=== PATIENT | male | born 1940 | race African-American/Black ===

== ENCOUNTER 2017-04-02 20:38 | Emergency (ER) | payer MEDICARE, MEDICAID ==
[~2017-04-02] VITALS: Ht 177.8 cm; Wt 90.7 kg
[2017-04-02] MEDS ORDERED: Unasyn 3gm Inj ONE (21:14)
[2017-04-02 21:15] LABS: ABG BASE EXCESS -7.1
[2017-04-02 21:16] LABS: ABG ALLEN TEST POSITIVE
[2017-04-02] MEDS: Ampicillin/Sulbactam Sod 3 GM in NS 110 ML IV SCH (21:26)
[2017-04-02 22:33] LABS: MEAN CORPUSCULAR HEMOGLOBIN 29.1 PG (27.0-31.0); MEAN CORPUSCULAR HGB CONC 35.1 G/DL (32.0-36.0); MEAN CORPUSCULAR VOLUME 83 FL (80-99); MEAN PLATELET VOLUME 6.6 FL (6.5-10.1); PLATELET COUNT 156 K/UL (150-450); RED BLOOD COUNT 4.26 M/UL (4.70-6.10); RED CELL DISTRIBUTION WIDTH 14.6 % (11.6-14.8); WHITE BLOOD COUNT 12.9 K/UL (4.8-10.8)
[2017-04-02 22:47] LABS: TROPONIN I < 0.30 ng/mL (<=0.30)
[2017-04-02 22:48] LABS: ALANINE AMINOTRANSFERASE 31 U/L (3-41); ALBUMIN/GLOBULIN RATIO 0.9 (1.0-2.7); ANION GAP 12 (5-15); ASPARTATE AMINO TRANSFERASE 34 U/L (5-40); BAND NEUTROPHILS % (MANUAL) 4 % (0-8); CALCIUM 9.2 mg/dL (8.6-10.2); CARBON DIOXIDE 23 mEQ/L (20-30); CHLORIDE 101 mEQ/L (98-107); CREATININE 1.3 mg/dL (0.7-1.2); HEMOLYSIS 3; LYMPHOCYTES % (MANUAL) 9 % (20-45); NEUTROPHILS % (MANUAL) 80 % (45-75); POTASSIUM 4.4 mEQ/L (3.4-4.9); SODIUM 136 mEQ/L (135-145); TOTAL CELLS COUNTED 100; TOTAL PROTEIN 6.5 g/dL (6.6-8.7)
[2017-04-02 22:52] LABS: BASOPHILS % (MANUAL) 0 % (0-2); EOSINOPHILS % (MANUAL) 0 % (0-3); PLATELET ESTIMATE ADEQUATE; PLATELET MORPHOLOGY NORMAL
[2017-04-02 23:00] LABS: KETONES,URINE NEGATIVE (NEGATIVE); PH,URINE 5 (4.5-8.0); PROTEIN,URINE 4+ (NEGATIVE); UROBILINOGEN,URINE 1 MG/DL (0.0-1.0)
[2017-04-02 23:03] LABS: REFLEX LACTIC ACID YES OR NO YES
--- NOTE | 2017-04-02 23:04 | Emergency Room Report ---
History of Present Illness General Chief Complaint: Altered Level of Consciousness Source: EMS Present Illness HPI Patient is a 77-year-old male who presented after increased level of consciousness from alf. Patient reportedly had been seen one day earlier at [facility]. Patient was sent back to his nursing facility subsequently after some improvement in his mental status. Patient had been having fever up to 102. Patient had been noted to be slowly verbal at baseline. The patient was noted to be increased confusion compared to baseline. Allergies: Coded Allergies: NSAIDS (NON-STEROIDAL ANTI-INFLAMMA (Verified Allergy, Unknown, 04/02/17) Patient History Past Medical History: see triage record Reviewed Nursing Documentation: PMH: Agreed, PSxH: Agreed Nursing Documentation-PMH Hx Cardiac Problems: Yes - Atherosclerosis of Aorta, anemia Hx Hypertension: Yes - Non traumatic Intracerebral Hemorrhage Hx Diabetes: Yes Hx Gastrointestinal Problems: Yes - GERD, Dysphagia History Of Psychiatric Problem: Yes - Depression Review of Systems All Other Systems: limited - by mental status Physical Exam Vital Signs Date Time Temp Pulse Resp B/P (MAP) Pulse Ox O2 Delivery O2 Flow Rate FiO2 04/02/17 20:32 100.2 107 20 94/59 97 Room Air Sp02 EP Interpretation: normal General Appearance: moderate distress, Chronically Ill Head: normocephalic Eyes: bilateral eye other - right pupil postsurgical, ENT: dry mucus membranes, other - gag reflex present Respiratory: rales, rhonchi Cardiovascular #1: normal peripheral pulses, regular rate, rhythm, edema Gastrointestinal: normal bowel sounds, non tender, soft Musculoskeletal: normal inspection, back normal, digits/nails normal Neurologic: motor weakness, other - aphasic Psychiatric: other - minimally responisve Procedures Critical Care Time Critical Care Time Patient had a critical medical condition which untreated could potentially result in life or limb threatening injury. Total critical care time excluding procedures approximately 45 minutes. Medical Decision Making Diagnostic Impression: Primary Impression: Altered level of consciousness Additional Impressions: Aspiration pneumonia Sepsis Decubital ulcer ER Course Patient presented for altered level consciousness.Differential diagnosis included but was not limited to ischemic stroke, subarachnoid hemorrhage, hypoglycemia, spinal cord injury, sepsis, neurodegenerative disorder, urinary tract infection, hypoxemia.Because of complexity of patient's case laboratory testing and imaging studies were ordered. The patient initially noted to be hypotensive. 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 The patient was given IV fluids as well as IV Unasyn and vancomycin. Laboratory testing was notable for elevated white blood count as well as bandemiaThe patient was noted to have vomited during transportation. Patient was suctioned immediately after vomiting. Patient appeared to have adequate cough reflex.The patient was discussed with at [facility] for transfer for continuity of care Labs Test 04/02/17 20:40 04/02/17 22:00 04/02/17 22:49 Arterial Blood pH 7.452 (7.350-7.450) Arterial Blood Partial Pressure CO2 23.0 mmHg (35.0-45.0) Arterial Blood Partial Pressure O2 64.0 mmHg (75.0-100.0) Arterial Blood HCO3 15.0 mmol/L (22.0-26.0) Arterial Blood Oxygen Saturation 68.0 % (92.0-98.0) Arterial Blood Base Excess -7.1 Mitch Test Positive White Blood Count 12.9 K/UL (4.8-10.8) Red Blood Count 4.26 M/UL (4.70-6.10) Hemoglobin 12.4 G/DL (14.2-18.0) Hematocrit 35.3 % (42.0-52.0) Mean Corpuscular Volume 83 FL (80-99) Mean Corpuscular Hemoglobin 29.1 PG (27.0-31.0) Mean Corpuscular Hemoglobin Concent 35.1 G/DL (32.0-36.0) Red Cell Distribution Width 14.6 % (11.6-14.8) Platelet Count 156 K/UL (150-450) Mean Platelet Volume 6.6 FL (6.5-10.1) Neutrophils (%) (Auto) % (45.0-75.0) Lymphocytes (%) (Auto) % (20.0-45.0) Monocytes (%) (Auto) % (1.0-10.0) Eosinophils (%) (Auto) % (0.0-3.0) Basophils (%) (Auto) % (0.0-2.0) Differential Total Cells Counted 100 Neutrophils % (Manual) 80 % (45-75) Lymphocytes % (Manual) 9 % (20-45) Monocytes % (Manual) 7 % (1-10) Eosinophils % (Manual) 0 % (0-3) Basophils % (Manual) 0 % (0-2) Band Neutrophils 4 % (0-8) Platelet Estimate Adequate Platelet Morphology Normal Red Blood Cell Morphology Normal Sodium Level 136 mEQ/L (135-145) Potassium Level 4.4 mEQ/L (3.4-4.9) Chloride Level 101 mEQ/L (98-107) Carbon Dioxide Level 23 mEQ/L (20-30) Anion Gap 12 (5-15) Blood Urea Nitrogen 23 mg/dL (7-23) Creatinine 1.3 mg/dL (0.7-1.2) Estimat Glomerular Filtration Rate mL/min (>60) Glucose Level 315 mg/dL (74-106) Lactic Acid Level 3.00 mmol/L (0.66-2.22) Calcium Level 9.2 mg/dL (8.6-10.2) Total Bilirubin 0.5 mg/dL (0.0-1.2) Aspartate Amino Transf (AST/SGOT) 34 U/L (5-40) Alanine Aminotransferase (ALT/SGPT) 31 U/L (3-41) Alkaline Phosphatase 80 U/L (40-129) Total Creatine Kinase 217 U/L (38-174) Creatine Kinase MB 3.0 ng/mL (< 6.7) Creatine Kinase MB Relative Index 1.3 Troponin I < 0.30 ng/mL (<=0.30) Pro-B-Type Natriuretic Peptide 3378 pg/mL (0-450) Total Protein 6.5 g/dL (6.6-8.7) Albumin 3.1 g/dL (3.5-5.2) Globulin 3.4 g/dL Albumin/Globulin Ratio 0.9 (1.0-2.7) Urine Color Red Urine Appearance Cloudy Urine pH 5 (4.5-8.0) Urine Specific [place] 1.015 (1.005-1.035) Urine Protein 4+ (NEGATIVE) Urine Glucose (UA) 1+ (NEGATIVE) Urine Ketones Negative (NEGATIVE) Urine Occult Blood 5+ (NEGATIVE) Urine Nitrite Negative (NEGATIVE) Urine Bilirubin Negative (NEGATIVE) Urine Urobilinogen 1 MG/DL (0.0-1.0) Urine Leukocyte Esterase 1+ (NEGATIVE) Urine RBC Tntc /HPF (0 - 0) Urine WBC 2-4 /HPF (0 - 0) Urine Squamous Epithelial Cells None /LPF (NONE/OCC) Urine Bacteria Few /HPF (NONE) EKG Diagnostic Results Rate: tachycardiac Rhythm: NSR ST Segments: no acute changes ASA given to the pt in ED: No Rhythm Strip Diag. Results EP Interpretation: yes Rhythm: NSR, no PVC's Last Vital Signs Date Time Temp Pulse Resp B/P (MAP) Pulse Ox O2 Delivery O2 Flow Rate FiO2 04/02/17 20:32 100.2 107 20 94/59 97 Room Air Status: improved Disposition: [facility] Condition: Serious Referrals: NON PHYSICIAN (PCP) García Dyson Apr 02, 2017 23:04
[2017-04-02 23:08] LABS: APPEARANCE,URINE CLOUDY; LEUKOCYTE ESTERASE ,URINE 1+ (NEGATIVE); NITRITE,URINE NEGATIVE (NEGATIVE)
[2017-04-02 23:09] LABS: BACTERIA,URINE FEW /HPF; RBC,URINE TNTC /HPF (0 - 0)
[2017-04-02 23:16] VITALS: BP 122/87
[2017-04-02] MEDS ORDERED: Acetaminophen 650 MG SUPP RECTAL ONE (23:45)
[2017-04-02] MEDS ORDERED: Vancomycin 1.5gm/D5W 250ml 250 ML IVPB ONE (23:45)
[2017-04-03 01:50] VITALS: BP 127/61
[2017-04-03 02:32] VITALS: BP 127/61
[2017-04-03] MEDS: Ampicillin/Sulbactam Sod 3 GM in NS 110 ML IV SCH (02:34)
--- NOTE | 2017-04-03 09:56 | Diagnostic Imaging Report ---
Indication: Altered mental status Technique: Contiguous 5 mm thick transaxial imaging of the head obtained in a Siemens Sensation [address] scanner. Soft tissue and bone windows generated. Total Dose length Product (DLP): [address] Dose Index Volume (CTDIvol): 70.38 x3, 0.15 mGy Comparison: none Findings: There is moderate prominence of the ventricles, basal cisterns, and cerebral sulci consistent with atrophy. Moderate, nonspecific, white matter hypoattenuation is noted throughout the brain consistent with chronic small vessel disease. There is no midline shift, edema, acute hemorrhage, mass effect, or abnormal extra-axial fluid collections. Bones and extra osseous soft tissues are unremarkable. Impression: No acute intracranial bleed, mass effect or edema. Moderate atrophy of the brain. Evidence of chronic small vessel disease involving white matter tracts. The study is significantly degraded by motion. [facility] has communicated the preliminary results to the Emergency Department. Their findings are largely concordant with this report. The CT scanner at [facility] is accredited by the [employer] and the scans are performed using dose optimization techniques as appropriate to a performed exam including Automatic Exposure control.
--- NOTE | 2017-04-03 11:12 | Diagnostic Imaging Report ---
Indication: Dyspnea Comparison: None A single view chest radiograph was obtained. Findings: Cardiomediastinal appearance is within normal limits for age. Pulmonary vascularity is appropriate. The diaphragmatic contour is smooth and costophrenic angles are sharp. No pleural effusions are identified. The bones are osteopenic. Impression: No acute findings
--- NOTE | 2017-04-03 13:42 | Cardiology Report ---
APPROVED REPORT EKG Measurement Heart [id number] Sinus tachycardia with 1st degree AV block Inferior infarct, age undetermined Anterolateral infarct, age undetermined Abnormal ECG
== END 2017-04-03 02:34 | disposition short-term general hospital (02) ==
LOC: EDBD 20:38 → EMR 20:40
DX: R41.82 Altered mental status, unspecified (principal); J18.9 Pneumonia, unspecified organism; A41.9 Sepsis, unspecified organism; L89.90 Pressure ulcer of unspecified site, unspecified stage; I10 Essential (primary) hypertension; E11.9 Type 2 diabetes mellitus without complications; K21.9 Gastro-esophageal reflux disease without esophagitis; Z88.6 Allergy status to analgesic agent; I95.9 Hypotension, unspecified; R00.0 Tachycardia, unspecified; G31.9 Degenerative disease of nervous system, unspecified; I73.9 Peripheral vascular disease, unspecified; M85.80 Other specified disorders of bone density and structure, unspecified site
CPT/HCPCS: 36415; 36600; 70450; 71010; 80053; 81003; 82550; 82553; 82803; 83605; 83880; 84484; 85007; 85025; 87040; 87181; 93005; 96360; 96365; 96366; 96374; 99291; J0295; J3370

== ENCOUNTER 2018-01-20 00:18 | Emergency (ER) | payer MEDICARE, MEDICAID ==
[~2018-01-20] VITALS: Ht 182.9 cm; Wt 90.7 kg
[2018-01-20] MEDS ORDERED: Sodium Chloride 500ML 500 ML IV ONE (00:37)
[2018-01-20] MEDS ORDERED: Acetaminophen 650mg/20.3ml GT ONE (00:45)
[2018-01-20 01:14] LABS: BASOPHILS % (AUTO) 0.6 % (0.0-2.0); EOSINOPHILS % (AUTO) 0.2 % (0.0-3.0); HEMATOCRIT 33.7 % (42.0-52.0); HEMOGLOBIN 10.3 G/DL (14.2-18.0); LYMPHOCYTES % (AUTO) 16.5 % (20.0-45.0); MEAN CORPUSCULAR VOLUME 79 FL (80-99); MONOCYTES % (AUTO) 7.6 % (1.0-10.0); NEUTROPHILS % (AUTO) 75.1 % (45.0-75.0); PLATELET COUNT 314 K/UL (150-450); RED BLOOD COUNT 4.27 M/UL (4.70-6.10); RED CELL DISTRIBUTION WIDTH 18.7 % (11.6-14.8); WHITE BLOOD COUNT 12.5 K/UL (4.8-10.8)
[2018-01-20 01:15] LABS: BILIRUBIN, URINE NEGATIVE (NEGATIVE); GLUCOSE, URINE (UA) NEGATIVE (NEGATIVE); KETONES,URINE NEGATIVE (NEGATIVE); NITRITE,URINE NEGATIVE (NEGATIVE); PH,URINE 8 (4.5-8.0); PROTEIN,URINE 3+ (NEGATIVE); UROBILINOGEN,URINE NORMAL MG/DL (0.0-1.0)
[2018-01-20] MEDS ORDERED: Acetaminophen 650 MG SUPP RECTAL ONE (01:15)
[2018-01-20 01:20] LABS: ANION GAP 6 mmol/L (5-15); BLOOD UREA NITROGEN 66 mg/dL (7-18); CALCIUM 8.4 MG/DL (8.5-10.1); CARBON DIOXIDE 31 MMOL/L (21-32); CHLORIDE 117 MMOL/L (98-107); CREATININE 1.2 MG/DL (0.55-1.30); SODIUM 154 MMOL/L (136-145)
[2018-01-20 01:27] LABS: APPEARANCE,URINE CLOUDY; COLOR,URINE YELLOW; LEUKOCYTE ESTERASE ,URINE 1+ (NEGATIVE)
[2018-01-20 01:35] LABS: ALANINE AMINOTRANSFERASE 454 U/L (12-78); ALBUMIN 1.1 G/DL (3.4-5.0); ALBUMIN/GLOBULIN RATIO 0.2 (1.0-2.7); ALKALINE PHOSPHATASE 125 U/L (46-116); ASPARTATE AMINO TRANSFERASE 306 U/L (15-37); BILIRUBIN,TOTAL 0.2 MG/DL (0.2-1.0); CKMB 1.2 NG/ML (0.0-3.6); CREATINE KINASE 137 U/L (26-308)
[2018-01-20] MEDS ORDERED: Azithromycin 500 MG in NS 275 ML IV ONE (02:45)
[2018-01-20] MEDS ORDERED: Piperacillin/Tazobactam 3.375 GM in NS 110 ML IVPB ONE (02:45)
[2018-01-20 03:40] VITALS: BP 161/84
--- NOTE | 2018-01-20 04:07 | Emergency Room Report ---
History of Present Illness General Chief Complaint: Dyspnea/Respdistress Source: Patient, Medical Record Present Illness HPI 77-year-old M presents ED for evaluation of shortness of breath, fever. Temp 102.4 rectally in triage. Coming from custodial. Also noted to be hypoxic. Placed on 15 L nonrebreather with improved O2 sats. Symptoms started today. Patient is nonverbal at baseline. No showing no signs of distress upon arrival. No other aggravating or relieving factors. No other associated symptoms Allergies: Coded Allergies: NSAIDS (NON-STEROIDAL ANTI-INFLAMMA (Verified Allergy, Unknown, 04/02/17) Patient History Past Medical History: DM, HTN, CVA/TIA Pertinent Family History: none Social History: Denies: smoking, alcohol use, drug use Immunizations: UTD Reviewed Nursing Documentation: PMH: Agreed; PSxH: Agreed Nursing Documentation-PMH Hx Cardiac Problems: Yes - Atherosclerosis of Aorta, anemia Hx Hypertension: Yes - Non traumatic Intracerebral Hemorrhage Hx Diabetes: Yes Hx Cerebrovascular Accident: Yes - Hemipgenia, hemiparesis Review of Systems All Other Systems: limited Physical Exam Vital Signs Date Time Temp Pulse Resp B/P (MAP) Pulse Ox O2 Delivery O2 Flow Rate FiO2 01/20/18 00:10 99.8 117 20 146/88 99 Non-Rebreather 15.0 99.9 Sp02 EP Interpretation: reviewed, normal General Appearance: other - nonverbal Head: normocephalic Eyes: bilateral eye normal inspection, bilateral eye PERRL ENT: normal ENT inspection Neck: normal inspection Respiratory: crackles Cardiovascular #1: tachycardia Gastrointestinal: normal inspection Rectal: deferred Genitourinary: no CVA tenderness Musculoskeletal: normal inspection Neurologic: other - nonverbal Psychiatric: other - nonverbal Skin: normal inspection Lymphatic: normal inspection Medical Decision Making Diagnostic Impression: Primary Impression: Pneumonia Qualified Codes: J18.1 - Lobar pneumonia, unspecified organism Additional Impression: Respiratory distress ER Course Hospital Course 77-year-old M presenting to ED with respiratory distress, fever Differential diagnoses include: Pneumonia, CHF exacerbation, pneumothorax, fluid overload Clinical course Patient placed on stretcher. On electronic device monitor with hypoxia on room air and tachycardia. After initial history and physical, I ordered labs, IV fluids, EKG , chest x-ray, blood cultures, UA. Patient placed on nasal cannula with O2 saturation improving Labs -leukocytosis noted, hemoglobin/hematocrit stable, electrolytes ok, BNP elevated, trop 0.141 EKG - sinus tachycardia no acute ischemic changes interpreted by me CXR - RLL infiltrate Patient O2 sat remains above 90% on nasal cannula. tachycardia improving with IV fluids. Antibiotics given Because of insurance patient will be transferred to [place] I feel this is a highly complex case requiring extensive working including EKG/ Rhythm strip, Xray/CT/US, Blood/urine lab work, repeat exams while in ED, and administration of strong opiates/narcotics for pain control, admission to hospital or close patient follow up. Diagnosis - pneumonia, respiratory distress Transferred in serious condition Labs Test 01/20/18 00:49 01/20/18 00:50 Urine Color Yellow Urine Appearance Cloudy Urine pH 8 (4.5-8.0) Urine Specific [place] 1.010 (1.005-1.035) Urine Protein 3+ (NEGATIVE) Urine Glucose (UA) Negative (NEGATIVE) Urine Ketones Negative (NEGATIVE) Urine Occult Blood 2+ (NEGATIVE) Urine Nitrite Negative (NEGATIVE) Urine Bilirubin Negative (NEGATIVE) Urine Urobilinogen Normal MG/DL (0.0-1.0) Urine Leukocyte Esterase 1+ (NEGATIVE) Urine RBC 2-4 /HPF (0 - 0) Urine WBC 0-2 /HPF (0 - 0) Urine Squamous Epithelial Cells None /LPF (NONE/OCC) Urine Triple Phosphate Crystals Many /LPF (NONE) Urine Bacteria Few /HPF (NONE) White Blood Count 12.5 K/UL (4.8-10.8) Red Blood Count 4.27 M/UL (4.70-6.10) Hemoglobin 10.3 G/DL (14.2-18.0) Hematocrit 33.7 % (42.0-52.0) Mean Corpuscular Volume 79 FL (80-99) Mean Corpuscular Hemoglobin 24.2 PG (27.0-31.0) Mean Corpuscular Hemoglobin Concent 30.7 G/DL (32.0-36.0) Red Cell Distribution Width 18.7 % (11.6-14.8) Platelet Count 314 K/UL (150-450) Mean Platelet Volume 7.8 FL (6.5-10.1) Neutrophils (%) (Auto) 75.1 % (45.0-75.0) Lymphocytes (%) (Auto) 16.5 % (20.0-45.0) Monocytes (%) (Auto) 7.6 % (1.0-10.0) Eosinophils (%) (Auto) 0.2 % (0.0-3.0) Basophils (%) (Auto) 0.6 % (0.0-2.0) Sodium Level 154 MMOL/L (136-145) Potassium Level 4.0 MMOL/L (3.5-5.1) Chloride Level 117 MMOL/L (98-107) Carbon Dioxide Level 31 MMOL/L (21-32) Anion Gap 6 mmol/L (5-15) Blood Urea Nitrogen 66 mg/dL (7-18) Creatinine 1.2 MG/DL (0.55-1.30) Estimat Glomerular Filtration Rate mL/min (>60) Glucose Level 289 MG/DL (74-106) Lactic Acid Level 2.00 mmol/L (0.4-2.0) Calcium Level 8.4 MG/DL (8.5-10.1) Total Bilirubin 0.2 MG/DL (0.2-1.0) Aspartate Amino Transf (AST/SGOT) 306 U/L (15-37) Alanine Aminotransferase (ALT/SGPT) 454 U/L (12-78) Alkaline Phosphatase 125 U/L (46-116) Total Creatine Kinase 137 U/L (26-308) Creatine Kinase MB 1.2 NG/ML (0.0-3.6) Creatine Kinase MB Relative Index 0.8 Troponin I 0.141 ng/mL (0.000-0.056) Pro-B-Type Natriuretic Peptide 2644 pg/mL (0-125) Total Protein 7.2 G/DL (6.4-8.2) Albumin 1.1 G/DL (3.4-5.0) Globulin 6.1 g/dL Albumin/Globulin Ratio 0.2 (1.0-2.7) EKG Diagnostic Results Rate: tachycardiac Rhythm: NSR ST Segments: no acute changes ASA given to the pt in ED: No Rhythm Strip Diag. Results EP Interpretation: yes Rhythm: NSR, no PVC's, no ectopy Chest X-Ray Diagnostic Results Chest X-Ray Diagnostic Results : Chest X-Ray Ordered: Yes # of Views/Limited/Complete: 1 View Indication: Shortness of Breath EP Interpretation: Yes Interpretation: no pneumothorax, other - RLL infiltrate Impression: Other - pneumonia Electronically Signed by: Electronically signed by Sim Pimentel MD Last Vital Signs Date Time Temp Pulse Resp B/P (MAP) Pulse Ox O2 Delivery O2 Flow Rate FiO2 01/20/18 03:40 98.8 108 30 161/84 96 Nasal Cannula 2.0 98.8 Status: improved Disposition: XFER [facility] Condition: Serious Referrals: NON PHYSICIAN (PCP) Sim Pimentel MD Jan 20, 2018 04:07
[2018-01-20 05:05] VITALS: BP 130/77
[2018-01-20] MEDS ORDERED: Zosyn 3.375gm inj ONE (05:55)
[2018-01-20 06:09] VITALS: BP 130/77
--- NOTE | 2018-01-20 13:13 | Diagnostic Imaging Report ---
Indication: Shortness of breath Technique: One view of the chest Comparison: 04/02/2017 Findings: Reticular and consolidative opacities are seen in the right perihilar region. This was present to some extent previously, but appears increased on the current study. The remainder the lungs and pleural spaces are clear. Heart size is upper limits of normal Impression: Right perihilar opacity. Suspect combination of acute infiltrate superimposed upon chronic scarring. Correlate with clinical findings
--- NOTE | 2018-01-20 14:02 | Cardiology Report ---
APPROVED REPORT EKG Measurement Heart [id number] Sinus tachycardia Left axis deviation Possible Lateral infarct, age undetermined Abnormal ECG
== END 2018-01-20 06:15 | disposition short-term general hospital (02) ==
LOC: EDBD 00:18 → EMR 00:32
DX: J18.9 Pneumonia, unspecified organism (principal); R06.03 Acute respiratory distress; E11.9 Type 2 diabetes mellitus without complications; I10 Essential (primary) hypertension; I69.359 Hemiplegia and hemiparesis following cerebral infarction affecting unspecified side
CPT/HCPCS: 36415; 71045; 80053; 81003; 82550; 82553; 83605; 83880; 84484; 85025; 87040; 87181; 93005; 96361; 96365; 99285; J2543; J7040